=== PATIENT | male | born 1980 | race African-American/Black ===

== ENCOUNTER 2020-01-11 18:00 | Emergency (ER) | payer MEDICAID ==
[2020-01-11] MEDS ORDERED: Ketorolac 30 MG/ML SDV IM ONE (19:52)
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
== END 2020-01-11 20:08 | disposition home or self-care (01) ==
LOC: DL.ED 18:00
DX: S05.12XA Contusion of eyeball and orbital tissues, left eye, initial encounter (principal); I10 Essential (primary) hypertension; Z79.899 Other long term (current) drug therapy; W22.8XXA Striking against or struck by other objects, initial encounter
CPT/HCPCS: 96372; 99283; J1885

== ENCOUNTER 2021-06-22 01:18 | Emergency (ER) | payer SELFPAY ==
[2021-06-22 02:01] LABS: ANION GAP 13.1 mEq/L (7-13); CHLORIDE,CL 104 mmol/L (98-107); SODIUM,NA 138 mmol/L (136-145)
== END 2021-06-22 02:32 | disposition home or self-care (01) ==
LOC: DL.ED 01:18
DX: R53.1 Weakness (principal); F14.90 Cocaine use, unspecified, uncomplicated; I10 Essential (primary) hypertension; Z79.899 Other long term (current) drug therapy
CPT/HCPCS: 36415; 70450; 71045; 80053; 82947; 83605; 84484; 85025; 87040; 93005; 93010; 99283; 99285-25

== ENCOUNTER 2021-08-29 03:03 | Emergency (ER) | payer SELFPAY ==
[2021-08-29] MEDS ORDERED: Aspirin 81 MG Tab.Chew PO ONE (03:10)
[2021-08-29] MEDS ORDERED: Nitroglycerin 0.4 MG Tab.SL ONE (03:24)
[2021-08-29] MEDS ORDERED: Aspirin 81 MG Tab.Chew ONE (03:24)
[2021-08-29] MEDS: Nitroglycerin 0.4 MG Tab.SL SL ONE ×2 (03:42→03:51)
[2021-08-29] MEDS ORDERED: Sodium Chloride 0.9% 10 ML Syringe FLUSH PRN (03:48)
[2021-08-29 04:22] LABS: ANION GAP 10.9 mEq/L (7-13); CHLORIDE,CL 103 mmol/L (98-107); SODIUM,NA 141 mmol/L (136-145)
[2021-08-29] MEDS ORDERED: Morphine 2 MG/ML SYRINGE IVPUSH ONE (04:36)
[2021-08-29] MEDS ORDERED: Nitroprusside 50 MG in Dextrose 5% in Water 248 ML IV SCH ×2 (04:45)
[2021-08-29] MEDS ORDERED: Ondansetron 4 MG/2 ML SDV IVPUSH ONE (04:46)
[2021-08-29] MEDS ORDERED: Heparin Sodium 5,000 Units/ML Vial IVPUSH ONE (04:57)
[2021-08-29] MEDS ORDERED: Heparin Sodium/0.45% NaCl 25,000 UNITS/500 ML BAG IV SCH (05:00)
[2021-08-29 05:07] LABS: CORONAVIRUS COVID-19 NAA NEGATIVE (NEGATIVE)
[2021-08-29] MEDS ORDERED: Nitroglycerin/D5W 25 MG/250 ML BOTTLE IV SCH (05:30)
[2021-08-29] MEDS ORDERED: Morphine 4 MG/ML Syringe IVPUSH ONE (05:33)
[2021-08-29] MEDS ORDERED: diphenhydrAMINE 50 MG/ML SDV IVPUSH ONE (05:43)
== END 2021-08-29 06:30 ==
LOC: DL.ED 03:03
DX: I21.4 Non-ST elevation (NSTEMI) myocardial infarction (principal); I10 Essential (primary) hypertension; F17.210 Nicotine dependence, cigarettes, uncomplicated; Z79.899 Other long term (current) drug therapy; Z20.822 Contact with and (suspected) exposure to COVID-19
CPT/HCPCS: 0240U; 36415; 71045; 80053; 84484; 85025; 85610; 85730; 87040; 93005; 93010; 96365; 96366; 96368; 96375; 96376; 99285; 99285-25; A9270-GY; J1200; J1644; J2270; J2405; J3490

== ENCOUNTER 2022-04-08 08:16 | Emergency (ER) | payer MEDICAID ==
[2022-04-08] MEDS ORDERED: Diphtheria,Pertussis(Acell),Tetanus Vaccine 0.5 ML Syringe IM ONE (08:30)
== END 2022-04-08 08:48 | disposition home or self-care (01) ==
LOC: DL.ED 08:16
DX: S61.216A Laceration without foreign body of right little finger without damage to nail, initial encounter (principal); I10 Essential (primary) hypertension; Z79.899 Other long term (current) drug therapy; Z23 Encounter for immunization; W25.XXXA Contact with sharp glass, initial encounter
CPT/HCPCS: 90471; 90715; 99283-25

== ENCOUNTER 2024-04-11 13:15 | Emergency (ER) | payer MEDICAID ==
[2024-04-11 14:12] LABS: BASOPHILS PERCENT AUTO 1.1 % (0.0-1.0); EOSINOPHILS PERCENT AUTO 0.6 % (1.0-3.0); HEMATOCRIT 42.4 % (40.0-54.0); HEMOGLOBIN 13.8 g/dL (14.0-18.0); LYMPHOCYTES PERCENT AUTO 31.8 % (20.5-50.1); MEAN CORPUSCULAR HEMOGLOBIN 29.2 pg (27.0-34.0); MEAN CORPUSCULAR HGB CONC 32.5 g/dL (33.0-35.0); MEAN CORPUSCULAR VOLUME 89.8 fL (80-100); MONOCYTES PERCENT AUTO 10.4 % (2-8); NEUTROPHILS PERCENT AUTO 56.1 % (42.2-75.2); PLATELET COUNT,PLT 274 10^3/uL (150-450); RED BLOOD CELL COUNT 4.72 10^6/uL (4.6-6.2); WHITE BLOOD CELL COUNT,WBC 7.2 10^3/uL (5.0-10.0)
[2024-04-11 14:31] LABS: A/G RATIO 1.2; ALBUMIN 3.4 g/dL (3.4-5.0); ANION GAP 10.7 mEq/L (7-13); BILIRUBIN TOTAL 0.3 mg/dL (0.2-1.0); BUN/CREATININE RATIO 14.3 (No establ ref range); CALCIUM 8.6 mg/dL (8.5-10.1); CREATININE 1.19 mg/dL (0.70-1.30); EST CRCL DRUG DOSING (CG) 75.84 mL/min; POTASSIUM,K 3.7 mmol/L (3.5-5.1); PROTEIN TOTAL,TP 6.2 g/dL (6.4-8.2)
[2024-04-11] MEDS: Albuterol/Ipratropium 3.0-0.5 MG/3 ML Neb Soln NEB ONE (14:33)
== END 2024-04-11 15:38 | disposition home or self-care (01) ==
LOC: DL.ED 13:15
DX: J18.9 Pneumonia, unspecified organism (principal); I10 Essential (primary) hypertension; Z79.899 Other long term (current) drug therapy
CPT/HCPCS: 36415; 71046; 80053; 84484; 85025; 93010; 99284; 99285; J7620-GY